=== PATIENT | male | born 1955 | race African-American/Black ===

== ENCOUNTER 2018-03-12 12:17 | Inpatient (IN) | payer BC, OTHER ==
--- NOTE | 2018-03-12 12:28 | PDOC ---
History of Present Illness - General Chief Complaint: Pain Stated Complaint: BLOOD CLOT Time Seen by Provider: 03/12/18 12:27 History Source: Patient, Spouse Exam Limitations: No Limitations - History of Present Illness Initial Comments: Pt is a 62 yo M repeated spine sx and MS suspicion, currently wheelchair bound since (s/p lower back sx 12/21/17-12/25/17), now presenting with extensive provoked DVT of L femoral vein extending to external iliac vein. The pt came in today with a DVT report and CD of duplx US of the LLE from [facility]. Patient has been having recurrent L leg swelling that resolves with elevation at night. No calf pain on the L, no chest pain, palpitations, cough, fever or SOB. No syncope, seizures, bowel or bladder incontinence and no hx of trauma. No previous smoking hx. 03/12/18 13:19 03/12/18 13:41 03/12/18 14:36 Timing/Duration: unsure Severity: moderate Associated Symptoms: denies: chest pain, cough, diaphoresis, fever/chills, loss of appetite, malaise, nausea/vomiting, shortness of breath, syncope, weakness Past History - Travel Traveled outside of the country in the last 30 days: No Close contact w/someone who was outside of country & ill: No - Past Medical History Allergies/Adverse Reactions: Allergies Allergy/AdvReac Type Severity Reaction Status Date / Time No Known Allergies Allergy Verified 03/12/18 12:18 COPD: No Other medical history: back problems, ble weakness,neuropathy - Suicide/Smoking/Psychosocial Hx Smoking History: Never smoked Have you smoked in the past 12 months: No Information on smoking cessation initiated: No Hx Alcohol Use: No Drug/Substance Use Hx: No Substance Use Type: None Review of Systems - Review of Systems Able to Perform ROS?: Yes Is the patient limited Malawian proficient: No Constitutional: Yes: Weakness (Bilateral lower extremity weakness). No: Chills , Diaphoresis, Fever, Loss of Appetite, Malaise, Night Sweats HEENTM: No: Eye Pain, Blurred Vision, Double Vision, Hearing Loss, Throat Pain, Throat Swelling Respiratory: No: Cough, Orthopnea, Shortness of Breath, SOB with Exertion, Stridor, Wheezing Cardiac (ROS): No: Chest Pain, Edema, Palpitations ABD/GI: No: Abdominal Distended : No: Burning, Dysuria, Discharge Musculoskeletal: Yes: Other (sciatica) Hematologic/Lymphatic: No: Anemia, Easy Bleeding *Physical Exam - Vital Signs Last Vital Signs Temp Pulse Resp BP Pulse Ox 98.1 F 88 18 152/95 100 03/12/18 12:19 03/12/18 12:19 03/12/18 12:19 03/12/18 12:19 03/12/18 12:19 - Physical Exam General Appearance: Yes: Appropriately Dressed. No: Apparent Distress HEENT: positive: EOMI, LAUREL. negative: Pharyngeal Erythema, Tonsillar Exudate Neck: positive: Supple Respiratory/Chest: positive: Lungs Clear, Normal Breath Sounds. negative: Respiratory Distress, Stridor, Wheezing Cardiovascular: positive: Regular Rhythm, Regular Rate, S1, S2. negative: JVD, Murmur Gastrointestinal/Abdominal: positive: Normal Bowel Sounds, Soft. negative: Tenderness Musculoskeletal: positive: Other (bilateral hypertonic knees, with increased tone more on LLE and tremors LLE). negative: CVA Tenderness Extremity: positive: Normal Range of Motion (Bilateral UE). negative: Pedal Edema, Swelling Integumentary: positive: Warm Neurologic: positive: Fully Oriented, Alert, Motor Strength 5/5 (5/5 Bilateral UE, 0/5 bilateral LE). negative: EOM Palsy, Facial Droop, Sensory Deficit, Confused, Disoriented Deep Tendon Reflexes: Knee (L): 4+, Knee (R): 2+, Bicep (L): 2+, Bicep (R): 2+, Tricep (L): 2+, Tricep (R): 2+ ED Treatment Course - LABORATORY CBC & Chemistry Diagram: 03/12/18 13:45 03/12/18 13:45 Medical Decision Making - Medical Decision Making Due to how extensive the DVT is from common femoral to external iliac vein, and is continued immobility, he will be admitted for now Basic labs-CBC, CMP, EKG, Coags Dr Cummings will be consulted to see if pt is a candidate for thrombolysis or IVC filter His Xray CD has been uploaded to the system 03/12/18 13:31 03/12/18 13:34 We are considering LMW heparin following creatinine level Discussed with Dr Cummings and is on board with anticoagulation as the plan 03/12/18 14:37 Cr-0.6 will give lovenox 1mg/kg Q12 Spoke with Dr Weldon- Notes it is a provoked DVT, aware that Dr Cummings is on the case but requests for Dr Huang to be consulted Dr Weldon accepts the admission *DC/Admit/Observation/Transfer Diagnosis at time of Disposition: Deep vein blood clot of left lower extremity - Discharge Dispostion Admit: Yes - Referrals Referrals: Jean Vigil MD [Primary Care Provider] - - Patient Instructions - Post Discharge Activity - Attestations Physician Attestion: 03/12/18 14:41 Pam Yoon MD
--- NOTE | 2018-03-12 13:49 | PDOC ---
Attending Attestation - Resident Resident Name: CarPam I - ED Attending Attestation I have performed the following: I have examined & evaluated the patient, The case was reviewed & discussed with the resident, I agree w/resident's findings & plan, Exceptions are as noted - HPI HPI: 03/12/18 13:43 62 year old male c/ hx ?MS, cervical stenosis s/p surgery November 2017, scooter- bound sent in from radiology for extensive LLE DVT to left external iliac vein. Denies chest pain or SOB. Noted to have left leg swelling. Was sent to outpatient radiology and sent to ER. No chest pain or SOB. - Physicial Exam PE: 03/12/18 13:42 GENERAL: Awake, alert, and fully oriented, in no acute distress. HEAD: No signs of trauma EYES: PERRLA, EOMI, sclera anicteric, conjunctiva clear ENT: Auricles normal inspection, hearing grossly normal, nares patent. NECK: Normal ROM, supple LUNGS: Breath sounds equal, clear to auscultation bilaterally. No wheezes, and no crackles HEART: Regular rate and rhythm, normal S1 and S2, no murmurs, rubs or gallops ABDOMEN: Soft, nontender, No guarding, no rebound. No masses EXTREMITIES: Left calf swelling appreciated, no erythema. NEUROLOGICAL: Cranial nerves II through XII grossly intact. Normal speech, SKIN: Warm, Dry, normal turgor, no rashes or lesions noted. - Medical Decision Making 03/12/18 13:46 Vital Signs Temp Pulse Resp BP Pulse Ox 98.1 F 88 18 152/95 100 03/12/18 12:19 03/12/18 12:19 03/12/18 12:19 03/12/18 12:19 03/12/18 12:19 Pt c/ extensive DVT. Will need anticoagulation. Unlikely to have PE at this time. Consult vascular to consider thrombectomy/IVC filter. Labs Given how extensive the DVT is, the patient will be admitted. Heart Score/ECG Review #1 ECG reviewed & interpreted by me at: 13:30 03/12/18 13:42 NSR 76, no std/dafne, normal axis, normal intervals, QTC 423 msec
[2018-03-12 13:51] LABS: BASO % 1.1 % (0-2.0); HEMATOCRIT 42.3 % (35.4-49); HEMOGLOBIN 13.4 GM/dL (11.7-16.9); LYMPH % 24.7 % (8-40); MCH 24.3 pg (25.7-33.7); MCHC 31.6 g/dl (32.0-35.9); MEAN CELL VOLUME 76.9 fl (80-96); MEAN PLT VOLUME 6.9 fl (7.5-11.1); MONO % 5.1 % (3.8-10.2); NEUT % 68.1 % (42.8-82.8); PLATELET COUNT 251 K/MM3 (134-434); RDW 16.3 % (11.9-15.9); WHITE BLOOD COUNT 7.3 K/mm3 (4.0-10.0)
[2018-03-12 14:18] LABS: INR 1.11 (0.82-1.09); PROTHROMBIN TIME (PATIENT) 12.5 SEC (9.98-11.88)
[2018-03-12 14:20] LABS: ALK PHOS 99 U/L (45-117); ANION GAP 7 (8-16); BILIRUBIN,TOTAL 0.4 mg/dL (0.2-1.0); BLOOD UREA NITROGEN 13 mg/dL (7-18); CALCIUM 9.6 mg/dL (8.5-10.1); CHLORIDE 104 mmol/L (98-107); CO2 30 mmol/L (21-32); CREATININE 0.6 mg/dL (0.7-1.3); GLUCOSE,RANDOM 109 mg/dL (74-106); POTASSIUM 4.1 mmol/L (3.5-5.1); SGOT/AST 10 U/L (15-37); SGPT/ALT 12 U/L (12-78); SODIUM 141 mmol/L (136-145); TOT PROT 7.7 g/dl (6.4-8.2)
[2018-03-12] MEDS ORDERED: ENOXAPARIN NA (PORCINE) 80 MG/0.8 ML DISP.SYRIN SQ ONE (14:28)
[2018-03-12] MEDS ORDERED: ENOXAPARIN NA (PORCINE) 30 MG/0.3 ML DISP.SYRIN SQ ONE (15:12)
[2018-03-12] MEDS ORDERED: ENOXAPARIN NA (PORCINE) 40 MG/0.4 ML DISP.SYRIN SQ ONE (15:12)
--- NOTE | 2018-03-12 16:16 | HP ---
Admitting History and Physical - Primary Care Physician PCP: Lizzie Weldon - Admission History of Present Illness: - Pt is a 62 yo M repeated spine sx and MS suspicion, currently wheelchair bound since (s/p lower back sx 12/21/17-12/25/17), now presenting with extensive provoked DVT of L femoral vein extending to external iliac vein. The pt came in today with a DVT report and CD of duplx US of the LLE [facility]. Patient has been having recurrent L leg swelling that resolves with elevation at night. No calf pain on the L, no chest pain, palpitations. - Smoking History Smoking history: Never smoked Have you smoked in the past 12 months: No - Alcohol/Substance Use Hx Alcohol Use: No Home Medications - Allergies Allergies/Adverse Reactions: Allergies Allergy/AdvReac Type Severity Reaction Status Date / Time No Known Allergies Allergy Verified 03/12/18 12:18 - Home Medications Home Medications: Ambulatory Orders Gabapentin 300 mg PO TID 03/12/18 Tramadol HCl 50 mg PO PRN PRN 03/12/18 Physical Examination Vital Signs: Vital Signs Temperature 98.1 F 03/12/18 12:19 Pulse Rate 88 03/12/18 12:19 Respiratory Rate 18 03/12/18 12:19 Blood Pressure 152/95 03/12/18 12:19 O2 Sat by Pulse Oximetry (%) 100 03/12/18 12:19 Constitutional: Yes: No Distress HENT: Yes: Atraumatic Neck: Yes: Supple Cardiovascular: Yes: Regular Rate and Rhythm Respiratory: Yes: CTA Bilaterally Gastrointestinal: Yes: Normal Bowel Sounds Extremities: Yes: WNL Neurological: Yes: Alert, Oriented Labs: CBC, BMP 03/12/18 13:45 03/12/18 13:45 Problem List - Problems (1) Deep vein blood clot of left lower extremity Assessment/Plan: on lovenox for ivc filter Code(s): I82.402 - ACUTE EMBOLISM AND THOMBOS UNSP DEEP VEINS OF L LOW EXTREM Assessment/Plan Laboratory Tests 03/12/18 03/12/18 03/12/18 13:45 13:45 13:45 WBC 7.3 RBC 5.50 Hgb 13.4 Hct 42.3 MCV 76.9 L MCH 24.3 L MCHC 31.6 L RDW 16.3 H Plt Count 251 MPV 6.9 L Neutrophils % 68.1 Lymphocytes % 24.7 Monocytes % 5.1 Eosinophils % 1.0 Basophils % 1.1 PT with INR INR PTT (Actin FS) 30.3 Sodium 141 Potassium 4.1 Chloride 104 Carbon Dioxide 30 Anion Gap 7 L BUN 13 Creatinine 0.6 L Creat Clearance w eGFR > 60 Random Glucose 109 H Calcium 9.6 Total Bilirubin 0.4 AST 10 L ALT 12 Alkaline Phosphatase 99 Total Protein 7.7 Albumin 4.0 03/12/18 13:45 WBC RBC Hgb Hct MCV MCH MCHC RDW Plt Count MPV Neutrophils % Lymphocytes % Monocytes % Eosinophils % Basophils % PT with INR 12.50 H INR 1.11 PTT (Actin FS) Sodium Potassium Chloride Carbon Dioxide Anion Gap BUN Creatinine Creat Clearance w eGFR Random Glucose Calcium Total Bilirubin AST ALT Alkaline Phosphatase Total Protein Albumin Active Medications Generic Name Dose Route Start Last Admin Trade Name Freq PRN Reason Stop Dose Admin Acetaminophen 650 mg 03/12/18 16:21 Tylenol - PO Q6H PRN FEVER Enoxaparin Sodium 70 mg 03/15/18 22:00 Lovenox - SQ 03/15/18 22:01 ONCE ONE
[2018-03-12] MEDS ORDERED: ACETAMINOPHEN 325 MG TABLET (FP) PO PRN (16:21)
--- NOTE | 2018-03-12 17:03 | EKG ---
Test Reason : Blood Pressure : / mmHG Vent. Rate : 074 BPM Atrial Rate : 074 BPM P-R Int : 150 ms QRS Dur : 088 ms QT Int : 380 ms P-R-T Axes : 062 063 059 degrees QTc Int : 421 ms NORMAL SINUS RHYTHM NORMAL ECG NO PREVIOUS ECGS AVAILABLE Confirmed by CHRISS ARCE MD ([id number]) on 03/12/2018 5:02:56 PM Referred By: Confirmed By:CHRISS ARCE MD
[2018-03-12 17:52] VITALS: BMI 22.8
--- NOTE | 2018-03-12 22:34 | CONSULT ---
Consult - text type - Consultation Consultation Note: t is a 62 yo M recent spine surgery, chronic lower extremity weakness, currently wheelchair bound since (s/p lower back sx 12/21/17-12/25/17), now presenting with extensive provoked DVT of L femoral vein extending to external iliac vein. The pt came in today with a DVT report and CD of felice VELA of the LLE from [facility] and referral by his spine surgeon (Dr Desai [facility]) to an emergency room. Patient has been having recurrent L leg swelling that resolves with elevation at night. No calf pain on the L, no chest pain, palpitations, cough, fever or SOB. No syncope, seizures, bowel or bladder incontinence and no hx of trauma. No previous smoking hx. PMH b/l lower extremity weakness Allergies/Adverse Reactions: Allergies Allergy/AdvReac Type Severity Reaction Status Date / Time No Known Allergies Allergy Verified 03/12/18 12:18 - Suicide/Smoking/Psychosocial Hx Smoking History: Never smoked *Physical Exam - Vital Signs Last Vital Signs Temp Pulse Resp BP Pulse Ox 98.1 F 88 18 152/95 100 03/12/18 12:19 03/12/18 12:19 03/12/18 12:19 03/12/18 12:19 03/12/18 12:19 Cor: RSR, No murmurs, No gallops Lungs: Clear to P&A Abd: Soft, Normal bowel sounds, No organomegaly Ext:No significant edema Skin: No rashes, Integument intact Abnormal Lab Results 03/12/18 03/12/18 03/12/18 13:45 13:45 13:45 MCV 76.9 L MCH 24.3 L MCHC 31.6 L RDW 16.3 H MPV 6.9 L PT with INR 12.50 H Anion Gap 7 L Creatinine 0.6 L Random Glucose 109 H AST 10 L A/P 62 y/o patient with chronic lower extremity weakness, lumbar spine surgery in , comes in with extensive LLE DVT extending to external iliac vein Agree with lovenox 1mg/kg SC bid vascular consult to consider ? NOAC at discharge
--- NOTE | 2018-03-13 08:29 | CONSULT ---
- Consultation REQUESTING PROVIDER: Vascular Surgery - Lane Cummings DO CONSULT REQUEST: We have been asked to surgically evaluate this patient for LLE swelling (acute vs. chronic DVT) PCP: Lizzie Weldon HPI: Called to eval 62 yo male s/p Lumbar fusions (anterior & posterior approaches 12/21/17 & 12/25/17) at [facility] in [place] by Dr. Favio Patton. Patient states he has been wheelchair bound since the surgery. Admits to prolonged periods of immobility. Followed post-op by Dr. Patton. Patient informed Dr. Patton that he has been having recurrent LLE swelling that resolves with simple elevation at night. He was sent in to ED by Dr. Patton after sending patient for out-patient duplex to eval swelling in his LEFT leg (calf). Patient presents to ED with DVT report and CD of duplex from [facility] -- > LLE DVT of L femoral vein extending to external iliac vein. Patient satarted on Lovenox 1mg/kg SC BID. He denies calf pain/tenderness. Denies CP, SOB, palpitations, fecer, chills, parasthesias PMHx: Spinal stenosis, Sciatica PSHx: Lumbar fusion (anterior approach) 12/21/17 and Lumbar fusion (posterior approach) 12/25/17 Home Meds: Gabapentin 300 mg PO TID Tramadol HCl 50 mg PO PRN PRN Allergies: NKDA ROS: Constitutional: Yes: Weakness (bilat LE weakness). No: Chills, Diaphoresis, Fever, Loss of Appetite, Malaise, Night Sweats HEENT: No: Eye Pain, Blurred Vision, Double Vision, Hearing Loss, Throat Pain, Throat Swelling Respiratory: No: Cough, Orthopnea, SOB, SOB with Exertion, Stridor, Wheezing Cardiac: No: Chest Pain, Edema, Palpitations ABD/GI: No: Abdominal Distended : No: Burning, Dysuria, Discharge Musculoskeletal: Yes: Other (sciatica) Hematologic/Lymphatic: No: Anemia, Easy Bleeding PE: GENERAL: A&Ox4. NAD. HEAD: NC. AT. EYES: PERRL, sclera anicteric, conjunctiva clear. NECK: Normal ROM, supple without lymphadenopathy, JVD, or masses. LUNGS: CTA bilat anteriorly HEART: RRR ABDOMEN: Soft, NT. ND. Normoactive bowel sounds. No organomegaly. MUSCULOSKELETAL: Normal ROM at all joints. No bony deformities or tenderness. No CVA tenderness. UE: 2+ pulses, warm, well-perfused. No cyanosis. Cap refill <2 seconds. No peripheral edema. LE: 2+ pulses, warm, well-perfused. No calf tenderness bilat. Left Calf swelling. + Loyda. PSYCH: Cooperative. Good eye contact. Appropriate mood and affect. SKIN: Lower abd left of midline vertical incision well healed. Lumbar incision vertical incision healed well. Last Vital Signs Temp Pulse Resp BP Pulse Ox 98.6 F 86 18 125/83 98 03/13/18 08:00 03/13/18 08:00 03/13/18 08:00 03/13/18 08:00 03/12/18 22:00 CBC, BMP 03/12/18 13:45 03/12/18 13:45 INR, PTT INR 1.11 (0.82-1.09) 03/12/18 13:45 Blood Type Blood Type A POSITIVE 03/12/18 20:38 Problem List - Problems (1) Deep vein blood clot of left lower extremity Assessment/Plan: 62 yo male admitted with extensive LLE DVT. Currently, he is resting comfortably without complaint. He isn't symptomatic (no parasthesias, pain out of proportion, gross swelling). He was started on Lovenox 1mg/kg BID. Dr. Sanchez (IR) called to see if he would be a candidate for thrombolyis (most likely not given he isn't symptomatic). Cont present care. Above plan discussed with Dr. Cummings and agrees. Code(s): I82.402 - ACUTE EMBOLISM AND THOMBOS UNSP DEEP VEINS OF L LOW EXTREM Visit type - Case Type Case Type: ED Admission - New patient This patient is new to me today: Yes Date on this admission: 03/13/18
[2018-03-13] MEDS ORDERED: APIXABAN 5 MG TABLET PO SCH (10:00)
--- NOTE | 2018-03-13 10:17 | PN ---
Progress Note (short form) - Note Progress Note: Pt seen and examined chart reviewed Cor: RSR, No murmurs, No gallops Lungs: Clear to P&A Abd: Soft, Normal bowel sounds, No organomegaly Ext:No significant edema, weakness (LE, chronic) Skin: No rashes, Integument intact Last Vital Signs Temp Pulse Resp BP Pulse Ox 98.6 F 86 18 125/83 98 03/13/18 08:00 03/13/18 08:00 03/13/18 08:00 03/13/18 08:00 03/12/18 22:00 CBC, BMP 03/12/18 13:45 03/12/18 13:45 Current Medications Generic Name Dose Route Start Last Admin Trade Name Freq PRN Reason Stop Dose Admin Acetaminophen 650 mg 03/12/18 16:21 Tylenol - PO Q6H PRN FEVER Enoxaparin Sodium 70 mg 03/13/18 10:00 Lovenox - SQ BID AMANDEEP vascular c/s reviewed d/w IR: plans per IR: c/w lovenox, plan for temp IVC filter today and tomorrow thrombectomy. can be continued on lovenox. Prior to DC: xarelto 15mg bid x21 day followed 20mg daily ( called pharmacy, no issues with coverage, will send it prior to his dc) duration: 3-6m rehab per pmd detailed discussion with pt re choice of AC, r/b/a of NOACs were discussed
[2018-03-13] MEDS: ENOXAPARIN NA (PORCINE) 80 MG/0.8 ML DISP.SYRIN SQ SCH ×2 (12:19→21:31)
[2018-03-13] MEDS ORDERED: PT OWN MED DRAWER 7, Y5N ONE ×2 (12:30→21:24)
--- NOTE | 2018-03-13 17:56 | PN ---
Progress Note, Physician - Current Medication List Current Medications: Active Medications Acetaminophen (Tylenol -) 650 mg PO Q6H PRN PRN Reason: FEVER Enoxaparin Sodium (Lovenox -) 70 mg SQ BID AMANDEEP Last Admin: 03/13/18 12:19 Dose: 70 mg - Objective Vital Signs: Vital Signs Temperature 98.7 F 03/13/18 17:24 Pulse Rate 84 03/13/18 17:24 Respiratory Rate 18 03/13/18 17:24 Blood Pressure 139/92 03/13/18 17:24 O2 Sat by Pulse Oximetry (%) 100 03/13/18 15:23 Constitutional: Yes: No Distress HENT: Yes: Atraumatic Neck: Yes: Supple Cardiovascular: Yes: Regular Rate and Rhythm Respiratory: Yes: CTA Bilaterally Gastrointestinal: Yes: Normal Bowel Sounds Extremities: Yes: WNL Labs: CBC, BMP 03/12/18 13:45 03/12/18 13:45 INR, PTT INR 1.11 (0.82-1.09) 03/12/18 13:45 Problem List - Problems (1) Deep vein blood clot of left lower extremity Assessment/Plan: on lovenoxs/p ivc filter for thrombectomy tomorrow Code(s): I82.402 - ACUTE EMBOLISM AND THOMBOS UNSP DEEP VEINS OF L LOW EXTREM
[2018-03-14] MEDS: ENOXAPARIN NA (PORCINE) 80 MG/0.8 ML DISP.SYRIN SQ SCH ×2 (10:35→21:59)
[2018-03-14] MEDS ORDERED: SODIUM CHLORIDE NR ONE (14:30)
[2018-03-14] MEDS ORDERED: ALTEPLASE NR ONE (14:30)
--- NOTE | 2018-03-14 18:36 | PN ---
Progress Note (short form) - Note Progress Note: Pt seen and examined chart reviewed Cor: RSR, No murmurs, No gallops Lungs: Clear to P&A Abd: Soft, Normal bowel sounds, No organomegaly Ext:No significant edema, weakness (LE, chronic) Skin: No rashes, Integument intact Last Vital Signs Temp Pulse Resp BP Pulse Ox 98.6 F 86 18 125/83 98 03/13/18 08:00 03/13/18 08:00 03/13/18 08:00 03/13/18 08:00 03/12/18 22:00 CBC, BMP 03/12/18 13:45 03/12/18 13:45 Current Medications Generic Name Dose Route Start Last Admin Trade Name Freq PRN Reason Stop Dose Admin Acetaminophen 650 mg 03/12/18 16:21 Tylenol - PO Q6H PRN FEVER Enoxaparin Sodium 70 mg 03/13/18 10:00 Lovenox - SQ BID AMANDEEP DVT: As per pt, thrombectomy was not done, and he is going for filter removal tomorrow can be continued on lovenox. Prior to DC: xarelto 15mg bid x21 day followed 20mg daily ( called pharmacy, no issues with coverage, will send it prior to his dc) Advised to him follow-up with physicians closely as he is moving out of [place] to [place] and to continue his anti-coagulation.
--- NOTE | 2018-03-14 19:29 | PN ---
Progress Note, Physician History of Present Illness: no complaints - Current Medication List Current Medications: Active Medications Acetaminophen (Tylenol -) 650 mg PO Q6H PRN PRN Reason: FEVER Enoxaparin Sodium (Lovenox -) 70 mg SQ BID AMANDEEP Last Admin: 03/14/18 10:35 Dose: Not Given - Objective Vital Signs: Vital Signs Temperature 98.9 F 03/14/18 18:00 Pulse Rate 95 H 03/14/18 18:00 Respiratory Rate 18 03/14/18 18:00 Blood Pressure 130/75 03/14/18 18:00 O2 Sat by Pulse Oximetry (%) 99 03/14/18 15:01 Constitutional: Yes: No Distress HENT: Yes: Atraumatic Neck: Yes: Supple Cardiovascular: Yes: Regular Rate and Rhythm Respiratory: Yes: CTA Bilaterally Gastrointestinal: Yes: Normal Bowel Sounds Extremities: Yes: WNL Edema: No Neurological: Yes: Alert, Oriented Labs: CBC, BMP 03/12/18 13:45 03/12/18 13:45 INR, PTT INR 1.11 (0.82-1.09) 03/12/18 13:45 Problem List - Problems (1) Deep vein blood clot of left lower extremity Assessment/Plan: on lovenox xeralto as out pt per hematology Code(s): I82.402 - ACUTE EMBOLISM AND THOMBOS UNSP DEEP VEINS OF L LOW EXTREM
[2018-03-15] MEDS: ENOXAPARIN NA (PORCINE) 80 MG/0.8 ML DISP.SYRIN SQ SCH (09:37)
--- NOTE | 2018-03-15 13:53 | PN ---
Progress Note (short form) - Note Progress Note: Pt seen and examined chart reviewed Cor: RSR, No murmurs, No gallops Lungs: Clear to P&A Abd: Soft, Normal bowel sounds, No organomegaly Ext:No significant edema, weakness (LE, chronic) Skin: No rashes, Integument intact Last Vital Signs Temp Pulse Resp BP Pulse Ox 98.6 F 86 18 125/83 98 03/13/18 08:00 03/13/18 08:00 03/13/18 08:00 03/13/18 08:00 03/12/18 22:00 CBC, BMP 03/12/18 13:45 03/12/18 13:45 Current Medications Generic Name Dose Route Start Last Admin Trade Name Freq PRN Reason Stop Dose Admin Acetaminophen 650 mg 03/12/18 16:21 Tylenol - PO Q6H PRN FEVER Enoxaparin Sodium 70 mg 03/13/18 10:00 Lovenox - SQ BID AMANDEEP DVT: for lovenox one dose today ( tonight ) start Xarelto from tomorrow dw pt
--- NOTE | 2018-03-15 17:45 | PN ---
Progress Note, Physician - Current Medication List Current Medications: Active Medications Acetaminophen (Tylenol -) 650 mg PO Q6H PRN PRN Reason: FEVER Enoxaparin Sodium (Lovenox -) 70 mg SQ ONCE ONE Stop: 03/15/18 22:01 Rivaroxaban (Xarelto -) 15 mg PO BID AMANDEEP - Objective Vital Signs: Vital Signs Temperature 99.1 F 03/15/18 14:18 Pulse Rate 84 03/15/18 14:27 Respiratory Rate 16 03/15/18 14:27 Blood Pressure 163/108 03/15/18 14:27 O2 Sat by Pulse Oximetry (%) 100 03/15/18 14:27 Constitutional: Yes: No Distress HENT: Yes: Atraumatic Neck: Yes: Supple Cardiovascular: Yes: Regular Rate and Rhythm Respiratory: Yes: CTA Bilaterally Gastrointestinal: Yes: Normal Bowel Sounds Extremities: Yes: WNL Edema: No Neurological: Yes: Alert, Oriented Labs: CBC, BMP 03/12/18 13:45 03/12/18 13:45 INR, PTT INR 1.11 (0.82-1.09) 03/12/18 13:45 Problem List - Problems (1) Deep vein blood clot of left lower extremity Assessment/Plan: on lovenox xeralto as out pt couldnt do thrombectomy as clot is old Code(s): I82.402 - ACUTE EMBOLISM AND THOMBOS UNSP DEEP VEINS OF L LOW EXTREM
--- NOTE | 2018-03-15 18:10 | DS ---
Physical Examination Vital Signs: Vital Signs Temperature 99.1 F 03/15/18 14:18 Pulse Rate 84 03/15/18 14:27 Respiratory Rate 16 03/15/18 14:27 Blood Pressure 163/108 03/15/18 14:27 O2 Sat by Pulse Oximetry (%) 100 03/15/18 14:27 Labs: CBC, BMP 03/12/18 13:45 03/12/18 13:45 Discharge Summary Reason For Visit: DEEP VEIN THROMBOSIS OF LEFT LOWER EXTREMITY (DVT) Current Active Problems Deep vein blood clot of left lower extremity (Acute) - Instructions Referrals: Jean Vigil MD [Primary Care Provider] - - Home Medications Comprehensive Discharge Medication List: Ambulatory Orders Gabapentin 300 mg PO TID 03/12/18 Tramadol HCl 50 mg PO PRN PRN 03/12/18 Rivaroxaban [Xarelto -] 15 mg PO BID tablet 03/15/18
[2018-03-15 20:25] LABS: BASO % 1.2 % (0-2.0); HEMATOCRIT 37.6 % (35.4-49); HEMOGLOBIN 12.2 GM/dL (11.7-16.9); LYMPH % 38.2 % (8-40); MCH 24.8 pg (25.7-33.7); MCHC 32.3 g/dl (32.0-35.9); MEAN CELL VOLUME 76.8 fl (80-96); MEAN PLT VOLUME 7.5 fl (7.5-11.1); MONO % 8.1 % (3.8-10.2); NEUT % 50.5 % (42.8-82.8); PLATELET COUNT 250 K/MM3 (134-434); RBC 4.91 M/mm3 (4.00-5.60); RDW 16.5 % (11.9-15.9); WHITE BLOOD COUNT 6.4 K/mm3 (4.0-10.0)
[2018-03-15 21:04] LABS: ALBUMIN 3.3 g/dl (3.4-5.0); ALK PHOS 88 U/L (45-117); ANION GAP 6 (8-16); BILIRUBIN,TOTAL 0.3 mg/dL (0.2-1.0); BLOOD UREA NITROGEN 8 mg/dL (7-18); CALCIUM 8.9 mg/dL (8.5-10.1); CHLORIDE 103 mmol/L (98-107); CO2 29 mmol/L (21-32); CREATININE 0.6 mg/dL (0.7-1.3); GLUCOSE,RANDOM 89 mg/dL (74-106); SGOT/AST 11 U/L (15-37); SGPT/ALT 10 U/L (12-78); SODIUM 138 mmol/L (136-145); TOT PROT 6.7 g/dl (6.4-8.2)
[2018-03-15] MEDS ORDERED: ENOXAPARIN NA (PORCINE) 100 MG/1 ML DISP.SYRIN SQ ONE (22:00)
[2018-03-16] MEDS ORDERED: PT OWN MED DRAWER 7, Y5N ONE (09:25)
[2018-03-16] MEDS ORDERED: RIVAROXABAN 15 MG TABLET PO SCH (10:00)
[2018-03-16 10:27] VITALS: BP 128/80; PULSE 92
[2018-03-16 14:05] VITALS: TEMP 98.7
--- NOTE | 2018-03-16 14:59 | PN ---
Progress Note (short form) - Note Progress Note: PAtient seen and examined Feels well. 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 spinal stenosis Last Vital Signs Temp Pulse Resp BP Pulse Ox 98.7 F 92 H 18 128/80 100 03/16/18 14:05 03/16/18 10:00 03/16/18 10:00 03/16/18 10:00 03/15/18 20:17 Cor: RSR, No murmurs, No gallops Lungs: Clear to P&A Abd: Soft, Normal bowel sounds, No organomegaly Ext:No significant edema Abnormal Lab Results 03/15/18 03/15/18 19:15 19:15 MCV 76.8 L MCH 24.8 L RDW 16.5 H Anion Gap 6 L Creatinine 0.6 L AST 11 L ALT 10 L Albumin 3.3 L Home Medication List Medication Instructions Recorded Confirmed Type Gabapentin 300 mg PO TID 03/12/18 03/12/18 History Tramadol HCl 50 mg PO PRN PRN 03/12/18 03/12/18 History Active Medications Generic Name Dose Route Start Last Admin Trade Name Freq PRN Reason Stop Dose Admin Acetaminophen 650 mg 03/12/18 16:21 Tylenol - PO Q6H PRN FEVER Rivaroxaban 15 mg 03/16/18 10:00 03/16/18 09:31 Xarelto - PO 15 mg BID AMANDEEP Administration A/P 62 y/o patient with paraperesis of several yrs. duration , recent L spine surgery in 12/14 developed extensive LLE DVT including left external iliac DVT on duplex u/s Started lovenox, switched to xeralto 15mg bid for 21 days followed by 20 mg daily Patient is relocating to [place] end of this month Asked him to follow up with hematology to decide on durationof a/c . He would need it for 3months and may be longer depending on his activity level Discussed with Dr. Lechuga team --they have cleared him to be anticoagulated with xeralto Advised him to refrain from heavy exercise for 4weeks from diagnosis and gradually return to preclot activity 4 weeks after diagnosis Discussed with Dr. Murillo as well Discussed all options of a/c, pros/cons of lovenox/xeralto./coumadin, durationof a/c, complications including bleeding, indications for filter.
--- NOTE | 2018-03-16 17:49 | DS ---
Physical Examination Vital Signs: Vital Signs Temperature 98.7 F 03/16/18 14:05 Pulse Rate 92 H 03/16/18 10:00 Respiratory Rate 18 03/16/18 10:00 Blood Pressure 128/80 03/16/18 10:00 O2 Sat by Pulse Oximetry (%) 100 03/15/18 20:17 Labs: CBC, BMP 03/15/18 19:15 03/15/18 19:15 Discharge Summary Reason For Visit: DEEP VEIN THROMBOSIS OF LEFT LOWER EXTREMITY (DVT) - Instructions Referrals: Jean Vigil MD [Primary Care Provider] - Disposition: HOME - Home Medications Comprehensive Discharge Medication List: Ambulatory Orders Gabapentin 300 mg PO TID 03/12/18 Tramadol HCl 50 mg PO PRN PRN 03/12/18 Rivaroxaban [Xarelto -] 15 mg PO BID tablet 03/15/18 dc to snf
== END 2018-03-16 16:54 | disposition home or self-care (01) | DRG 197 ==
LOC: JER 12:17 → JERBED 14:41 → J6S 15:39
PROVIDERS: ADMIT Internal Medicine; ATTEND Internal Medicine
PROC: 06H03DZ Insertion of Intraluminal Device into Inferior Vena Cava, Percutaneous Approach (ICD-10-PCS; principal; 2018-03-13)
DX: I82.412 Acute embolism and thrombosis of left femoral vein (principal); I82.422 Acute embolism and thrombosis of left iliac vein; Z99.3 Dependence on wheelchair; M54.30 Sciatica, unspecified side
CPT/HCPCS: 36415; 37187; 37191; 37193; 76000-TC-FY; 76937-TC; 76942-TC; 80053; 85025; 85610; 85730; 86850; 86900; 86901; 93005; 93010; 99282-25; C1769; C1773; C1880; C1887; C1894